=== PATIENT | female | born 1980 | race Caucasian/White ===

== ENCOUNTER 2016-12-18 08:35 | Emergency (ER) | payer SELFPAY ==
[2016-12-18 08:38] VITALS: TEMP 98.2; BMI 37.2
--- NOTE | 2016-12-18 09:11 | PDOC ---
History of Present Illness - History of Present Illness Initial Comments: 12/18/16 11:26 The patient is a 36 year old female, with a significant past medical history of idiopathic thrombocytopenia s/p splenectomy, who presents to the emergency department with left-sided inguinal pain since last night. The patient reports that during her last about 8 months ago she had to be cut open in a new location to get the baby out and states that when she was sutured they hit a nerve. She states she has experienced intermittent, nonradiating left- sided inguinal pain, localized right over the surgical scar, after her procedure 8 months ago, however, she reports receiving cortisone injection to the surgical site about 7 months ago which significantly alleviated her pain until the gradual onset last night. She reports her current pain as sharp, constant, 6/10 in severity and non-radiating. She reports her pain is exacerbated with breathing and moving, however, she states she feels slightly more comfortable when lying on her left side and the pain is the same in nature as previous epsides. Secondarily, she reports nausea associated with her pain. She reports taking Tylenol this morning for pain with minimal alleviation of her symptoms. She denies any vaginal bleeding or discharge. The patient reports her doctors and the deliveries of her 8 children were all in [place]. She states she has not found a PMD in [place]. LMP: 1 week ago She denies chest pain, shortness of breath, headache and dizziness. She denies fever, chills, nausea, vomit, diarrhea and constipation. She denies dysuria, frequency, urgency and hematuria. Allergies: sulfa, codeine and reglan Past surgical history: x5, tubal ligation, cholecystectomy and appendectomy Social history: daily tobacco (2 cigarettes daily), denies alcohol use <Georgina Mccarthy - Last Filed: 12/18/16 12:46> <Sam Ratliff - Last Filed: 12/18/16 18:13> - General Chief Complaint: Pain Stated Complaint: LT SIDE PAIN Time Seen by Provider: 12/18/16 09:06 Past History <Georgina Mccarthy - Last Filed: 12/18/16 12:46> - Past Medical History Anemia: No Asthma: No Other medical history: ITP - Surgical History Abdominal Surgery: Yes (SPLENECTOMY) Appendectomy: Yes Cholecystectomy: Yes - Immunization History Immunization Up to Date: Yes - Psycho/Social/Smoking Cessation Hx Anxiety: No Suicidal Ideation: No Smoking History: Current every day smoker Have you smoked in the past 12 months: Yes Number of Cigarettes Smoked Daily: 2 Information on smoking cessation initiated: Yes 'Breaking Loose' booklet given: 12/18/16 Hx Alcohol Use: No Drug/Substance Use Hx: No Substance Use Type: None <Sam Ratliff - Last Filed: 12/18/16 18:13> - Past Medical History Allergies/Adverse Reactions: Allergies Allergy/AdvReac Type Severity Reaction Status Date / Time codeine Allergy Hives Verified 12/18/16 08:38 metoclopramide HCl Allergy Hives Verified 12/18/16 08:38 [From Reglan] Sulfa (Sulfonamide Allergy Hives Verified 12/18/16 08:38 Antibiotics) Home Medications: Ambulatory Orders Oxycodone HCl/Acetaminophen [Percocet 5-325 mg Tablet -] 1 combo PO Q6H PRN #7 tablet MDD 4 12/18/16 Review of Systems - Review of Systems Able to Perform ROS?: Yes Comments:: 12/18/16 11:26 CONSTITUTIONAL: No reported: Fever, Chills, Diaphoresis, Generalized Weakness, Malaise, Loss of Appetite HEENT: No reported: Rhinorrhea, Nasal Congestion, Throat Pain, Throat Swelling, Difficulty Swallowing, Mouth Swelling, Ear Pain, Eye Pain, Visual Changes CARDIOVASCULAR: No reported: Chest Pain, Syncope, Palpitations, Irregular Heart Rate, Lightheadedness, Peripheral Edema RESPIRATORY: No reported: Cough, Shortness of Breath, SOB with Exertion, Orthopnea, Wheezing , Stridor, Hemoptysis GASTROINTESTINAL: No reported: Abdominal pain, Abdominal Distension, Nausea, Vomiting, Diarrhea, Constipation, Melena, Hematochezia GENITOURINARY: (+) left-sided inguinal pain. No reported: Dysuria, Frequency, Urgency, Hesitancy, Flank Pain, Genital Pain MUSCULOSKELETAL: No reported: Myalgia, Arthralgia, Joint Swelling, Back pain, Neck Pain SKIN: No reported: Rash, Itching, Pallor HEMEATOLOGIC/IMMUNOLOGIC: No reported: Easy Bleeding, Easy Bruising, Lymphadenopathy, Frequent infections ENDOCRINE: No reported: Unexplained Weight Gain, Unexplained Weight Loss, Heat Intolerance , Cold Intolerance NEUROLOGIC: No reported: Headache, Focal Weakness, Paresthesias, Vertigo, Lightheadedness, Unsteady Gait, Seizure, Mental Status Changes, Incontinence PSYCHIATRIC: No reported: Anxiety, Depression <Georgina Mccarthy - Last Filed: 12/18/16 12:46> *Physical Exam - Vital Signs Last Vital Signs Temp Pulse Resp BP Pulse Ox 98.2 F 105 H 18 146/80 98 12/18/16 08:35 12/18/16 08:35 12/18/16 08:35 12/18/16 08:35 12/18/16 08:35 - Physical Exam Comments: 12/18/16 11:26 GENERAL: The patient is awake, alert, and fully oriented, Nontoxic - in no acute distress. HEAD: Normocephalic, atraumatic. EYES: extraocular movements intact, sclera anicteric, conjunctiva clear. ENT: Normal voice, Moist mucous membranes. NECK: Normal range of motion, supple LUNGS: Breath sounds equal, clear to auscultation bilaterally. No wheezes, no rhonchi, no rales. HEART: Regular rate and rhythm, without murmur, rub or gallop. ABDOMEN: Mild tenderness at the incision site in LLQ w/o any erythema, induiration, fluctuance, warmth, Soft, normoactive bowel sounds. No guarding, no rebound.No CVA tenderness EXTREMITIES: Normal range of motion, no edema. No clubbing or cyanosis. No cords, erythema, or tenderness. NEUROLOGICAL: No facial assymetry, Normal speech, PSYCH: Normal mood, normal affect. SKIN: Warm, Dry, normal turgor, <Georgina Mccarthy - Last Filed: 12/18/16 12:46> - Vital Signs Last Vital Signs Temp Pulse Resp BP Pulse Ox 98.2 F 105 H 18 146/80 98 12/18/16 08:35 12/18/16 08:35 12/18/16 08:35 12/18/16 08:35 12/18/16 08:35 <Sam Ratliff - Last Filed: 12/18/16 18:13> Heart Score/ECG Review - ECG Impressions Comment:: 12/18/16 18:12 Twelve-lead EKG was performed and reviewed by me. There is normal sinus rhythm with a normal rate. Rate of 70 The axis is normal. The intervals are normal. There is normal R wave progression No signs of peaked T waves or interval widening to suggest hyperkalemia Impression: Normal twelve-lead EKG <Sam Ratliff - Last Filed: 12/18/16 18:13> ED Treatment Course - LABORATORY CBC & Chemistry Diagram: 12/18/16 09:50 12/18/16 10:27 - ADDITIONAL ORDERS Additional order review: Laboratory Results 12/18/16 12/18/16 12/18/16 10:27 09:50 09:50 Sodium 134 L Cancelled Potassium 6.0 H Cancelled Chloride 104 Cancelled Carbon Dioxide 21 Cancelled Anion Gap 9 Cancelled BUN 14 Cancelled Creatinine 0.8 Cancelled Creat Clearance w eGFR > 60 Cancelled Random Glucose 86 Cancelled Calcium 9.3 Cancelled Total Bilirubin 0.8 Cancelled AST 48 H Cancelled ALT 32 Cancelled Alkaline Phosphatase 87 Cancelled Total Protein 7.4 Cancelled Albumin 4.2 Cancelled Serum , Qual Negative Urine Color Ltyellow Urine Appearance Clear Urine pH 7.0 Urine Protein 1+ H Urine Glucose (UA) Negative Urine Ketones Negative Urine Blood Negative Urine Nitrite Negative Urine Bilirubin Negative Urine Urobilinogen Negative Ur Leukocyte Esterase Negative 12/18/16 09:50 RBC 4.90 MCV 94.3 MCHC 33.4 RDW 15.0 MPV 8.4 Neutrophils % 60.6 Lymphocytes % 30.5 Monocytes % 5.4 Eosinophils % 2.7 Basophils % 0.8 - RADIOLOGY Radiograph Interpretation: 12/18/16 12:45 Transvaginal US/Pelvic/Bladder US was read by Dr. Nails at 12:01 Impression: retroflexed uterus with a trace of fluid within the endometrial cavity which is nonspecific simple cyst in the left ovary measuring 3cm in maximum dimension for which a follow-up US in first week of the next mesntrual cycle is recommended. - Medications Given in the ED: ED Medications Discontinued Medications Generic Name Dose Route Start Last Admin Trade Name Freq PRN Reason Stop Dose Admin Ondansetron HCl 4 mg 12/18/16 10:08 12/18/16 10:17 Zofran - PO 12/18/16 10:09 4 mg ONCE ONE Administration Oxycodone/Acetaminophen 1 combo 12/18/16 10:08 12/18/16 10:17 Percocet 5/325 - PO 12/18/16 10:09 1 combo ONCE ONE Administration <ShariAaronGeorgina - Last Filed: 12/18/16 12:46> - LABORATORY CBC & Chemistry Diagram: 12/18/16 09:50 12/18/16 10:27 <Sam Ratliff - Last Filed: 12/18/16 18:13> Medical Decision Making - Medical Decision Making 12/18/16 10:04 36y F hx of ITP s/p splenectomy, multiple csections, 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 On exam pt does have some localized tenderness scar tissue on LLQ w/o any erythema, induration, fluctuance , no tenderness in the abdomen rebound/guarding, no cva tenderness, sheis otherwise well appearing. differential includes her chronic neuropathic pain vs. ovarian torsion/cyst will r/o pt defers IV, will give pt percoet PO, zofran PO will obtain US to r/o ovarian pathology A portion of this note was documented by scribe services under my direction. I have reviewed the details of the note, within reason, and agree with the documentation with the following case summary and management plan written by me 12/18/16 12:57 labs reviewed noted for hyperkalemia to 6, however suspect it is due to lab hemolysis ekg shows no changes and pt has no hx of renal dysufunction. will dfer repeat labs US reviewed noted for 3cm cyst in L adnexa will have pt fu with retail team leader pt feeling improved. abd is soft nontender return precautions were discussed I discussed the physical exam findings, ancillary test results and final diagnoses with the patient. I answered all of the patient's questions. The patient was satisfied with the care received and felt comfortable with the discharge plan and treatment plan. The patient will call their primary care physician within 24 hours to arrange follow-up and will return to the Emergency Department with any new, persistent or worsening symptoms. <Sam Ratliff - Last Filed: 12/18/16 18:13> *DC/Admit/Observation/Transfer - Attestations Scribe Attestion: 12/18/16 11:27 Documentation prepared by Georgina Mccarthy, acting as biomedical equipment support specialist for Sam Ratliff MD <Georgina Mccarthy - Last Filed: 12/18/16 12:46> - Discharge Dispostion Admit: No <Sam Ratliff - Last Filed: 12/18/16 18:13> Diagnosis at time of Disposition: Ovarian cyst - Discharge Dispostion Disposition: HOME Condition at time of disposition: Improved - Prescriptions Prescriptions: Oxycodone HCl/Acetaminophen [Percocet 5-325 mg Tablet -] 1 combo PO Q6H PRN #7 tablet MDD 4 PRN Reason: Pain - Referrals Referrals: Vincent Villeda MD [Staff Physician] - - Patient Instructions Printed Discharge Instructions: DI for Ovarian Cyst Additional Instructions: Return to the emergency department immediately with ANY new, persistent or worsening symptoms including worsening pain, fevers, chills, inability to tolerate oral intake or any other concerns. You MUST call and follow up with your upper cutter machine in 2-3 weeks for further evaluation of your symptoms. Results were discussed with you. Please make sure your doctor reviews the results of your emergency evaluation. Print Language: LAO
[2016-12-18] MEDS ORDERED: ONDANSETRON 4 MG/2 ML VIAL IVPB ONE (09:35)
[2016-12-18] MEDS ORDERED: SODIUM CHLORIDE 1,000 ML IV ONE (09:35)
[2016-12-18] MEDS ORDERED: ONDANSETRON 4 MG/2 ML VIAL ONE (09:41)
[2016-12-18 10:06] LABS: BASOPHIL 0.8 % (0-2.0); EOSINOPHIL 2.7 % (0-4.5); MCH 31.5 pg (25.7-33.7); MCHC 33.4 g/dl (32.0-36.0); MEAN CELL VOLUME 94.3 fl (80-96); MEAN PLT VOLUME 8.4 fl (7.5-11.1); NEUTROPHILS 60.6 % (42.8-82.8); WHITE BLOOD COUNT 14.5 K/mm3 (4.0-10.0)
[2016-12-18] MEDS ORDERED: ONDANSETRON 4 MG TABLET PO ONE (10:08)
[2016-12-18] MEDS ORDERED: OXYCODONE/APAP 5/325MG COMBO TABLET PO ONE (10:08)
[2016-12-18] MEDS ORDERED: ONDANSETRON *ODT* 4 MG TABLET ONE (10:11)
[2016-12-18] MEDS ORDERED: OXYCODONE/APAP 5/325MG COMBO TABLET ONE (10:11)
[2016-12-18 10:49] LABS: URINE APPEARANCE CLEAR; URINE BILIRUBIN NEGATIVE (NEGATIVE); URINE BLOOD NEGATIVE (NEGATIVE); URINE COLOR LTYELLOW; URINE GLUCOSE (UA) NEGATIVE (NEGATIVE); URINE KETONE NEGATIVE (NEGATIVE); URINE LEUK ESTERASE NEGATIVE (NEGATIVE); URINE NITRITE NEGATIVE (NEGATIVE); URINE UROBILINOGEN NEGATIVE E.U./dl (0.2-1.0)
[2016-12-18 10:53] LABS: URINE PROTEIN 1+ (NEGATIVE)
[2016-12-18 11:16] LABS: ALBUMIN 4.2 g/dl (3.4-5.0); ALK PHOS 87 U/L (45-117); ANION GAP 9 (8-16); BILIRUBIN,TOTAL 0.8 mg/dL (0.2-1.0); CALCIUM 9.3 mg/dL (8.5-10.1); CO2 21 mmol/L (21-32); COCKROFT - GAULT 143.3695; CREATININE 0.8 mg/dL (0.55-1.02); GLUCOSE,RANDOM 86 mg/dL (74-106); SGPT/ALT 32 U/L (12-78); TOT PROT 7.4 g/dl (6.4-8.2)
[2016-12-18 11:18] LABS: SGOT/AST 48 U/L (15-37)
[2016-12-18 11:33] LABS: PLATELET COUNT 386 K/MM3 (134-434)
[2016-12-18 11:46] LABS: URINE MUCUS RARE; URINE RBC <1 /hpf (0-3); URINE WBC <1 /hpf (3-5)
[2016-12-18 12:34] VITALS: BP 149/80; PULSE 82
--- NOTE | 2016-12-19 16:35 | EKG ---
Test Reason : Blood Pressure : / mmHG Vent. Rate : 070 BPM Atrial Rate : 070 BPM P-R Int : 134 ms QRS Dur : 090 ms QT Int : 414 ms P-R-T Axes : 044 041 057 degrees QTc Int : 447 ms NORMAL SINUS RHYTHM NONSPECIFIC T WAVE ABNORMALITY ABNORMAL ECG NO PREVIOUS ECGS AVAILABLE Confirmed by REYNALDO BRUNER, STEVE ([id number]) on 12/19/2016 4:34:57 PM Referred By: Confirmed By:STEVE JACOBS MD
== END 2016-12-18 13:16 | disposition home or self-care (01) ==
LOC: JER 08:35
DX: N83.202 Unspecified ovarian cyst, left side (principal); D69.3 Immune thrombocytopenic purpura; F17.210 Nicotine dependence, cigarettes, uncomplicated
CPT/HCPCS: 36415; 76830-TC; 76856-TC; 80053; 81003; 81015; 84703; 85025; 93005; 93010; 99284-25

== ENCOUNTER 2016-12-29 09:37 | Emergency (ER) | payer SELFPAY ==
[2016-12-29 09:47] VITALS: TEMP 98.4; BMI 37.2
--- NOTE | 2016-12-29 10:01 | PDOC ---
History of Present Illness - General History Source: Patient Exam Limitations: No Limitations - History of Present Illness Initial Comments: 12/29/16 10:11 The patient is a 36 year old female, with a significant past medical history of idiopathic thrombocytopenia s/p splenectomy who presents to the emergency department with LLQ abdominal pain. The patient was here last week on 12/18/16, presenting with similar symptoms. While she was here she report having an US showing an ovarian cysts. She reports being discharged home later than day with percocets, and has been feeling much improved until last night where she had the onset of her LLQ pain again. She reports taking Tylenol, with mild alleviation of her pain. She denies recent fevers, chills, headache or dizziness. She denies recent vomit, diarrhea or constipation. She denies recent dysuria, frequency, urgency or hematuria. She denies any vaginal bleeding or discharge. Allergies: sulfa, reglan, and codeine Past surgical history: x5, tuba ligation, appendectomy, and cholecystectomy Social history: Daily smoker (x2 cigarettes per day). Denies EtOH use and recreational drug use. <Sandro Du - Last Filed: 12/29/16 10:29> - General History Source: Patient Exam Limitations: No Limitations <Kate Mortensen - Last Filed: 12/29/16 12:50> - General Chief Complaint: Pain Stated Complaint: PAIN Time Seen by Provider: 12/29/16 09:59 Past History <Sandro Du - Last Filed: 12/29/16 10:29> - Past Medical History Anemia: No Asthma: No Other medical history: ITP idiopathic thrombocytopenia - Surgical History Abdominal Surgery: Yes (SPLENECTOMY) Appendectomy: Yes Cholecystectomy: Yes - Immunization History Immunization Up to Date: Yes - Psycho/Social/Smoking Cessation Hx Anxiety: No Suicidal Ideation: No Smoking History: Never smoked Have you smoked in the past 12 months: Yes Number of Cigarettes Smoked Daily: 1 Information on smoking cessation initiated: No 'Breaking Loose' booklet given: 12/18/16 Hx Alcohol Use: No Drug/Substance Use Hx: No Substance Use Type: None <Kate Mortensen - Last Filed: 12/29/16 12:50> - Past Medical History Allergies/Adverse Reactions: Allergies Allergy/AdvReac Type Severity Reaction Status Date / Time codeine Allergy Hives Verified 12/29/16 09:47 metoclopramide HCl Allergy Hives Verified 12/29/16 09:47 [From Reglan] Sulfa (Sulfonamide Allergy Hives Verified 12/29/16 09:47 Antibiotics) Home Medications: Ambulatory Orders Tramadol HCl [Ultram] 50 mg PO TID PRN #6 tablet MDD 3 12/29/16 Review of Systems - Review of Systems Able to Perform ROS?: Yes Comments:: 12/29/16 10:11 CONSTITUTIONAL: Absent: fever, chills, diaphoresis, generalized weakness, malaise, loss of appetite HEENT: Absent: rhinorrhea, nasal congestion, throat pain, throat swelling, difficulty swallowing, mouth swelling, ear pain, eye pain, visual Changes CARDIOVASCULAR: Absent: chest pain, syncope, palpitations, irregular heart rate, lightheadedness , peripheral edema RESPIRATORY: Absent: cough, shortness of breath, dyspnea with exertion, orthopnea, wheezing, stridor, hemoptysis GASTROINTESTINAL: +Left sided abdominal pain.Absent: nausea, vomiting, diarrhea, constipation, melena, hematochezia GENITOURINARY: Absent: dysuria, frequency, urgency, hesitancy, hematuria, flank pain, genital pain MUSCULOSKELETAL: Absent: myalgia, arthralgia, joint swelling SKIN: Absent: rash, itching, pallor HEMATOLOGIC/IMMUNOLOGIC: Absent: easy bleeding, easy bruising, lymphadenopathy, frequent infections ENDOCRINE: Absent: unexplained weight gain, unexplained weight loss, heat intolerance, cold intolerance NEUROLOGIC: Absent: headache, focal weakness or paresthesias, dizziness, unsteady gait, seizure, mental status changes, bladder or bowel incontinence PSYCHIATRIC: Absent: anxiety, depression, suicidal or homicidal ideation, hallucinations. <Sandro Du - Last Filed: 12/29/16 10:29> *Physical Exam - Vital Signs Last Vital Signs Temp Pulse Resp BP Pulse Ox 98.4 F 92 H 18 136/71 100 12/29/16 09:44 12/29/16 09:44 12/29/16 09:44 12/29/16 09:44 12/29/16 09:44 - Physical Exam Comments: 12/29/16 10:26 CONSTITUTIONAL: Well developed, well nourished. Awake and alert. No acute distress. HEENT: Normocephalic, atraumatic. PERRLA, EOMI. No conjunctival pallor. Sclera are non- icteric. Moist mucous membranes. Oropharynx is clear. NECK: Supple. Full ROM. No JVD. Carotid pulses 2+ and symmetric, without bruits. No thyromegaly. No lymphadenopathy. CARDIOVASCULAR: Regular rate and rhythm. No murmurs, rubs, or gallops. Distal pulses are 2+ and symmetric. PULMONARY: No evidence of respiratory distress. Lungs clear to auscultation bilaterally. No wheezing, rales or rhonchi. OBGYN: No adnexal or CMT. No discharge or bleeding seen at this time. ABDOMINAL: Minimal tenderness to palpation of her left pelvic scar, this well healed. Soft. Non-distended. No rebound or guarding. No organomegaly. Normoactive bowel sounds. MUSCULOSKELETAL Normal range of motion at all joints. No bony deformities or tenderness. No CVA tenderness. EXTREMITIES: No cyanosis. No clubbing. No edema. No calf tenderness. SKIN: Warm and dry. Normal capillary refill. No rashes. No jaundice. NEUROLOGICAL: Alert, awake, appropriate. Cranial nerves 2-12 intact. No deficits to light touch and temperature in face, upper extremities and lower extremities. No motor deficits in the in face, upper extremities and lower extremities. Normoreflexic in the upper and lower extremities. Normal speech. Toes are down- going bilaterally. Gait is normal without ataxia. PSYCHIATRIC: Cooperative. Good eye contact. Appropriate mood and affect. <Sandro Du - Last Filed: 12/29/16 10:29> - Vital Signs Last Vital Signs Temp Pulse Resp BP Pulse Ox 98.4 F 92 H 18 136/71 100 12/29/16 09:44 12/29/16 09:44 12/29/16 09:44 12/29/16 09:44 12/29/16 09:44 <Kate Mortensen - Last Filed: 12/29/16 12:50> ED Treatment Course - LABORATORY CBC & Chemistry Diagram: 12/29/16 10:30 12/29/16 10:30 <Kate Mortensen - Last Filed: 12/29/16 12:50> Medical Decision Making - Medical Decision Making A/P: 36 y/o afebrile female with left pelvic pain. She was seen here on 12/18 and has been here for similar in the past. States it's her csection scar and she normally gets hydrocortisone shots but hasn't established an MARKETING FINANCIAL ANALYST here since she moved back from [place] last year. She states percocet helped her last time and her pain went away in 2 days but returned yesterday. She does have an appointment set up with Dr. Villeda scheduled for 2 days from today, . Plan is as follows: 1. labs 2. UA 3. Transvaginal ultrasound Patient is complaining of pain. Will give 1 percocet. Transvaginal Ultrasound IMPRESSION: A 3.7cm left ovarian cyst is noted which has mildly increased in size since the previous study of 12/18/16. Correlation with 6 week follow up ultrasound is suggested. The remainder of the study appears unremarkable. A portion of this note was written by my scribe, under my supervision. <Kate Mortensen - Last Filed: 12/29/16 12:50> *DC/Admit/Observation/Transfer - Attestations Scribe Attestion: 12/29/16 10:11 Documentation prepared by Sandro Du, acting as medical and scientific illustrator for RACHEL Gutierrez <Sandro Du - Last Filed: 12/29/16 10:29> <Kate Mortensen - Last Filed: 12/29/16 12:50> Diagnosis at time of Disposition: Scar pain, Ovarian cyst - Discharge Dispostion Disposition: HOME Condition at time of disposition: Stable - Prescriptions Prescriptions: Tramadol HCl [Ultram] 50 mg PO TID PRN #6 tablet MDD 3 PRN Reason: Pain - Patient Instructions Printed Discharge Instructions: DI for Ovarian Cyst Additional Instructions: Discharge Instructions: -A prescription for Tramadol has been called out to your pharmacy; please take as prescribed; may cause drowsiness -Keep your follow up appointment with Dr. Villeda scheduled for Friday12/31/16. -Return to the ER with any worsening or concerning symptoms
[2016-12-29] MEDS ORDERED: OXYCODONE/APAP 5/325MG COMBO TABLET PO ONE (10:33)
[2016-12-29] MEDS ORDERED: OXYCODONE/APAP 5/325MG COMBO TABLET ONE (10:35)
[2016-12-29 11:01] LABS: BASOPHIL 0.9 % (0-2.0); EOSINOPHIL 1.9 % (0-4.5); MCH 31.8 pg (25.7-33.7); MCHC 33.4 g/dl (32.0-36.0); MEAN CELL VOLUME 95.2 fl (80-96); MEAN PLT VOLUME 8.1 fl (7.5-11.1); NEUTROPHILS 64.8 % (42.8-82.8); PLATELET COUNT 497 K/MM3 (134-434); RDW 14.6 % (11.6-15.6); WHITE BLOOD COUNT 14.2 K/mm3 (4.0-10.0)
--- NOTE | 2016-12-29 11:01 | PDOC ---
*Physical Exam - Vital Signs Last Vital Signs Temp Pulse Resp BP Pulse Ox 98.4 F 92 H 18 136/71 100 12/29/16 09:44 12/29/16 09:44 12/29/16 09:44 12/29/16 09:44 12/29/16 09:44 ED Treatment Course - LABORATORY CBC & Chemistry Diagram: 12/29/16 10:30 12/29/16 10:30 - Medications Given in the ED: ED Medications Discontinued Medications Generic Name Dose Route Start Last Admin Trade Name Freq PRN Reason Stop Dose Admin Oxycodone/Acetaminophen 1 combo 12/29/16 10:33 12/29/16 10:38 Percocet 5/325 - PO 12/29/16 10:34 1 combo ONCE ONE Administration Medical Decision Making - Medical Decision Making 12/29/16 11:00 Pt seen by the Advanced Practice Provider under my direct supervision Ancillary studies reviewed I agree with plan as outlined by the Advanced Practice Provider RACHEL Sofia *DC/Admit/Observation/Transfer Diagnosis at time of Disposition: Scar pain - Discharge Dispostion Condition at time of disposition: Good
[2016-12-29 11:03] LABS: URINE APPEARANCE CLEAR; URINE BILIRUBIN NEGATIVE (NEGATIVE); URINE BLOOD NEGATIVE (NEGATIVE); URINE COLOR STRAW; URINE GLUCOSE (UA) NEGATIVE (NEGATIVE); URINE KETONE NEGATIVE (NEGATIVE); URINE LEUK ESTERASE NEGATIVE (NEGATIVE); URINE NITRITE NEGATIVE (NEGATIVE); URINE UROBILINOGEN NEGATIVE E.U./dl (0.2-1.0)
[2016-12-29 11:28] LABS: URINE PROTEIN 1+ (NEGATIVE)
[2016-12-29 11:29] LABS: ALBUMIN 4.4 g/dl (3.4-5.0); ALK PHOS 97 U/L (45-117); ANION GAP 10 (8-16); BILIRUBIN,TOTAL 0.6 mg/dL (0.2-1.0); CALCIUM 9.6 mg/dL (8.5-10.1); CO2 23 mmol/L (21-32); COCKROFT - GAULT 163.8545; CREATININE 0.7 mg/dL (0.55-1.02); GLUCOSE,RANDOM 108 mg/dL (74-106); SGOT/AST 19 U/L (15-37); SGPT/ALT 25 U/L (12-78); TOT PROT 7.7 g/dl (6.4-8.2)
[2016-12-29 14:06] VITALS: BP 130/77; PULSE 78
== END 2016-12-29 13:45 | disposition home or self-care (01) ==
LOC: JER 09:37
DX: R10.32 Left lower quadrant pain (principal); D69.3 Immune thrombocytopenic purpura; N83.209 Unspecified ovarian cyst, unspecified side
CPT/HCPCS: 36415; 76830-TC; 80053; 81003; 81015; 84703; 85025; 99282-25